=== PATIENT | male | born 1940 | race Hispanic/Latino ===

== ENCOUNTER 2020-08-10 06:37 | Day surgery (SDC) | payer MEDICARE ==
[2020-08-10] MEDS ORDERED: SODIUM CHLORIDE 0.9% 1000 ML 1,000 ML ONE (07:20)
[2020-08-10] MEDS: SODIUM CHLORIDE 0.9% 1000 ML 1,000 ML IV SCH ×2 (07:20→08:30)
[2020-08-10] MEDS ORDERED: HEPARIN 10,000 UNITS/10 ML VIAL ONE (07:57)
[2020-08-10] MEDS ORDERED: HEPARIN/NS 5000 UNIT/500ML 1,000 ML IR ONE (07:57)
[2020-08-10] MEDS ORDERED: MIDAZOLAM 2 MG/2 ML INJ ONE (07:57)
[2020-08-10] MEDS ORDERED: NITROGLYCERIN SYRINGE 3 ML ONE (07:58)
[2020-08-10] MEDS ORDERED: fentaNYL 100 MCG/2 ML INJ ONE (07:58)
[2020-08-10] MEDS ORDERED: LIDOCAINE (2%) 20 MG/1 ML VIAL 20 ML MDV INFILTRATI ONE (07:58)
[2020-08-10] MEDS ORDERED: VERAPAMIL 5 MG/2 ML INJ ONE (07:58)
--- NOTE | 2020-08-10 09:31 | Cardiac Catherization Report ---
PERIPHERAL ANGIOGRAM PROCEDURE DONE BY: Kike Goff MD CLINICAL INFORMATION: This is a 80-year-old gentleman with known peripheral vascular disease with left SFA intervention, presents with worsening claudication symptoms and abnormal ultrasound, monophasic in both legs. Has hypertension, coronary artery disease, diabetes, and mild renal insufficiency. A peripheral angiogram procedure was done with moderate sedation, started at 8:46, finished at 8:57. Eleven minutes of moderate sedation. Procedure was performed via the right radial artery, sterile technique, local anesthesia, 6-Somali radial sheath inserted. Pigtail catheter was placed in the distal abdominal aorta and runoff was done, which showed distal abdominal aorta patent, bilateral common iliacs has 20% disease, bilateral internal and external iliacs patent with mild luminal irregularities. Right common femoral artery has a focal 99% calcified lesion, right profunda. Right SFA is patent, but diffuse disease with focal areas of 30% of a calcified vessel with right popliteal patent and anterior tibial, posterior tibial, and peroneal are patent with mild luminal irregularities. Left common femoral artery is 100% short occlusion with left profunda patent. Left SFA, proximal patent, mid is 100% with collaterals feeding into the distal SFA approximately 80 mm worth of occlusion. Left popliteal is patent and 2-vessel runoff of the posterior tibial and anterior tibial, peroneal 100%. Catheter was taken over guidewire, 6-Somali radial sheath was discontinued. Radial dressing applied. No hematoma, no bleeding. SUMMARY: 1. Significant bilateral common iliac disease with left common femoral artery 100%, calcified right common femoral artery 90% calcified. 2. Distal abdominal aorta patent, bilateral common iliacs 20%. 3. Bilateral internal and external iliac, patent. Right profunda, patent. Right SFA, diffuse disease with focal areas of 30% with right popliteal and 3-vessel runoff. 4. Left SFA, proximal patent, mid 100% with collaterals feeding into the distal SFA, which is patent and popliteal, patent with 2-vessel runoff. 5. The patient will be referred for surgery for bilateral common femoral atherectomy. Discussed this in detail with the patient and patient's family. JOB# [id number] KARRIE/JHONATAN
--- NOTE | 2020-08-10 09:41 | Short Stay Summary ---
Short Stay Documentation Date of service: 08/10/20 - History H&P: obtained from office - Allergies and Medications Current Medications: Allergies Sulfa (Sulfonamide Antibiotics) Adverse Reaction (Verified 01/05/17 07:16) Unknown Home Medications Medication Instructions Recorded Confirmed Last Taken Type Amlodipine Besylate/Benazepril 1 tab PO DAILY 01/05/17 08/10/20 08/08/20 History [amLODIPine-Benazepril 5/40 mg] Clopidogrel Bisulfate [Clopidogrel] 75 mg PO DAILY 01/05/17 08/10/20 08/08/20 History Furosemide 20 mg PO DAILY PRN 01/05/17 08/10/20 08/08/20 History Insulin Lispro [HumaLOG VIAL] 35 units SQ BID 01/05/17 08/10/20 08/08/20 History Metoprolol Tartrate 50 mg PO BID 01/05/17 08/10/20 08/08/20 History Ciprofloxacin HCl [Ciprofloxacin 500 mg PO Q12HR 08/10/20 08/10/20 08/08/20 History TAB] Rosuvastatin Calcium [Crestor] 10 mg PO DAILY 08/10/20 08/10/20 08/08/20 History cilostazoL [Pletal] 100 mg PO BID 08/10/20 08/10/20 08/08/20 History Active Medications Sodium Chloride (Nacl 0.9% 1000 Ml) 1,000 mls @ 100 mls/hr IV DIRECT RADHA Stop: 08/10/20 13:29 Last Admin: 08/10/20 08:30 Dose: 100 mls/hr Documented by: - Brief post op/procedure progress note Date of procedure: 08/10/20 Pre-op diagnosis: pvd Post-op diagnosis: same Procedure: see report Anesthesia: local Estimated blood loss: none Pathology: none - Disposition Condition at discharge: Good Disposition: [id number] TO HOME OR SELFCARE - Discharge Diagnoses (1) Claudication Status: Acute (2) Peripheral vascular angioplasty status Status: Chronic (3) CAD (coronary artery disease) Status: Chronic Qualifiers: Coronary Disease-Associated Artery/Lesion type: kashia artery Associated angina: without angina (4) Diabetes mellitus treated with oral medication Status: Chronic (5) Hyperlipemia, mixed Status: Chronic Short Stay Discharge Plan Activity: advance as tolerated Diet: low fat, low cholesterol, diabetic Wound: keep clean and dry Follow up with: PRIMARY CARE, [Primary Care Provider] - 7 Days
[2020-08-10] MEDS ORDERED: traMADol 50 MG TAB PO PRN (10:00)
[2020-08-10] MEDS ORDERED: HYDROcodone/ACETAMINOPHEN 5-325 MG TAB PO PRN (10:00)
[2020-08-10 13:25] VITALS: BP 152/67
== END 2020-08-10 13:45 | disposition home or self-care (01) ==
LOC: CATHLABREC 06:37
PROVIDERS: ATTEND Internal Medicine
DX: I70.213 Atherosclerosis of native arteries of extremities with intermittent claudication, bilateral legs (principal); E11.51 Type 2 diabetes mellitus with diabetic peripheral angiopathy without gangrene; I12.9 Hypertensive chronic kidney disease with stage 1 through stage 4 chronic kidney disease, or unspecified chronic kidney disease; E11.22 Type 2 diabetes mellitus with diabetic chronic kidney disease; N18.2 Chronic kidney disease, stage 2 (mild); I25.10 Atherosclerotic heart disease of native coronary artery without angina pectoris; E78.2 Mixed hyperlipidemia; Z88.2 Allergy status to sulfonamides; Z79.899 Other long term (current) drug therapy; Z79.4 Long term (current) use of insulin; Z87.891 Personal history of nicotine dependence; Z98.62 Peripheral vascular angioplasty status; Z90.49 Acquired absence of other specified parts of digestive tract; Z87.442 Personal history of urinary calculi; Z98.890 Other specified postprocedural states; Z86.79 Personal history of other diseases of the circulatory system
CPT/HCPCS: 36200; 36415; 75630; 82565; 84520; 99156; J1644; J2250; J3010; J7030; 75625; 75716; 96360; 96361; Q9967